=== PATIENT | male | born 1970 | race African-American/Black ===

== ENCOUNTER 2016-05-03 19:20 | Emergency (ER) | payer OTHER ==
--- NOTE | ~2016-05-03 | CR63 ---
[facility]. [facility] A Service of [facility] & [facility] RADIOLOGY TEXT RESULTS PATIENT: CHRISTIAN RAMIREZ LOCATION: SED : 74 UNIT #: [id number] AGE: [address]: LINDA SHARMA SEX: M ORDER DR: [id number] [address] [address] [id number] MR#: [id number] #: [id number] NAME: CHRISTIAN RAMIREZ : 1970 SEX: M STUDY DATE/TIME: 05/03/2016 19:41 UNIT: SED ROOM: STUDY DESCRIPTION: CR Chest 2 View Attending Physician: Linda Sharma Ordering Physician: Physician Non-Staff Primary Care Physician: Estefany Law M.D. MEDICAL IMAGING REPORT This report is preliminary unless electronic signature is present. EXAM PA and lateral chest HISTORY Chest pain for 1 week. Left shoulder pain for 1 month. No injury. FINDINGS PA and lateral examination of the chest upright shows a good expansion of the parenchyma with a normal distribution of the pulmonary vascularity. There is no indication of congestion, effusion, infiltrate, tumor, or nodular density. The pleural reflections and diaphragmatic contours are normal. The cardiac silhouette and mediastinal anatomy is within normal limits. IMPRESSION Normal chest. Dictated by... Edmund Bustillo M.D. THIS IS AN ELECTRONICALLY VERIFIED REPORT Edmund Bustillo M.D. at 05/04/2016 12:37 PM ADINA/byron TD: 05/04/2016 11:22 JOB #: [id number] MEDICAL IMAGING REPORT
--- NOTE | ~2016-05-03 | EKG ---
PATIENT: CHRISTIAN RAMIREZ UNIT #: [id number] Ventricular Rate: 65 BPM Atrial Rate: 65 BPM P-R Interval: 132 ms QRS Duration: 92 ms Q-T Interval: 402 ms QTC Calculation(Bezet): 418 ms P [place]: 66 degrees Calculated R [place]: 60 degrees Calculated T [place]: 49 degrees Diagnosis Line: Normal sinus rhythm Diagnosis Line: Voltage criteria for left ventricular hypertrophy Diagnosis Line: Otherwise normal ECG Diagnosis Line: No previous ECGs available Diagnosis Line: Confirmed by NO MAYES MD ([id number]) on 05/08/2016 Diagnosis Line: 9:38:28 AM INTERPRETING MD: GERBER ROSARIO
[~2016-05-03 19:20] MED LIST: GABAPENTIN400 M2 PO; KETOPROFEN PO; SKELAXIN PO; TRAMADOL HCL50 M1 PO
[2016-05-03 19:45] LABS: BASOPHIL% 0.6 % (0-2.5); EOSINOPHIL# 0.1 X10e3 (0-0.7); EOSINOPHIL% 2.7 % (0.0-7.0); HEMATOCRIT 43.1 % (38.0-50.0); HEMOGLOBIN 14.1 gm/dL (13.0-16.0); LYMPHOCYTE# 1.7 X10e3 (1.0-3.5); LYMPHOCYTE% 34.7 % (17.0-45.0); MEAN CORPUSCULAR HEMOGLOBIN 30.2 PG (28-34); MEAN CORPUSCULAR HGB CONC 32.8 g/dL (30-36); MEAN PLATELET VOLUME 8.2 FL (6.5-11.5); MONOCYTE# 0.4 X10e3 (0-1.0); MONOCYTE% 8.8 % (3.0-12.0); NEUTROPHIL# 2.6 X10e3 (1.5-7.1); NEUTROPHIL% 53.2 % (40-75); PLATELET COUNT 162 X10e3 (140-420); RED BLOOD COUNT 4.68 X10e (3.90-5.60); RED CELL DISTRIBUTION WIDTH 13.7 % (11.0-15.5)
[2016-05-03 19:52] LABS: DIFF IND NO
[2016-05-03 19:57] LABS: POC - CKMB <1.0 ng/mL (0.0-7.9); POC - MYOGLOBIN 36.7 ng/mL (0.0-169.0); POC - TROPONIN <0.05 ng/mL (<=0.05)
[2016-05-03 19:58] LABS: ALBUMIN SERUM 4.1 g/dL (3.5-5.0); ALKALINE PHOSPHATASE 63 U/L (32-92); ALT (SGPT) 15 U/L (10-40); AST (SGOT) 18 U/L (10-42); BILIRUBIN,TOTAL 0.8 mg/dL (0.2-2.0); BLOOD UREA NITROGEN 20 mg/dL (9-23); BUN/CREATININE RATIO 18.18; CARBON DIOXIDE 27 mmol/L (22-31); CHLORIDE 103 mmol/L (100-111); CREATININE SERUM 1.1 mg/dL (0.6-1.4); GLOM FILT RATE Estimated ABOVE60 mL/min (>60); GLUCOSE FASTING 100 mg/dL (70-110); POTASSIUM 3.7 mmol/L (3.5-5.1); PROTEIN TOTAL SERUM 6.8 g/dL (6.0-8.3); SODIUM 137 mmol/L (135-145)
[2016-05-03 20:01] LABS: BILIRUBIN, DIRECT <0.1 mg/dL (0.0-0.2); BILIRUBIN,INDIRECT 0.7 mg/dL (0.0-0.9)
== END 2016-05-03 20:28 | disposition home or self-care (01) ==
LOC: SED 19:20
PROVIDERS: Physician Assistant
DX: M25.512 Pain in left shoulder (principal); R07.9 Chest pain, unspecified; M79.602 Pain in left arm; F17.200 Nicotine dependence, unspecified, uncomplicated
CPT/HCPCS: 36415; 71020; 80048; 80076; 82553; 83874; 84484; 85025; 93005; 99283; 99284